=== PATIENT | female | born 1990 | race Two or more races ===

== ENCOUNTER 2016-11-14 22:00 | Observation (INO) | payer OTHER | END 2016-11-14 22:55 | disposition home or self-care (01) | DRG 781 | LOC: LDRP 22:00 | PROVIDERS: ADMIT Obstetrics & Gynecology; ATTEND Obstetrics & Gynecology | DX: O26.892 Other specified pregnancy related conditions, second trimester (principal); R07.81 Pleurodynia; M79.603 Pain in arm, unspecified; Z3A.26 26 weeks gestation of pregnancy | CPT/HCPCS: 59025; 81002; G0378 ==